=== PATIENT | female | born 1930 | race Caucasian/White ===

== ENCOUNTER → 2017-09-26 | Outpatient (CLI) | payer MEDICARE, MEDICAID | END | disposition home or self-care (01) | LOC: RAD 14:34 | PROVIDERS: ATTEND Neurological Surgery | DX: M43.17 Spondylolisthesis, lumbosacral region (principal); M48.07 Spinal stenosis, lumbosacral region; M19.071 Primary osteoarthritis, right ankle and foot; M54.32 Sciatica, left side; M54.31 Sciatica, right side | CPT/HCPCS: 72148; 73630 ==